=== PATIENT | female | born 1960 | race Two or more races ===

== ENCOUNTER 2016-06-13 08:27 | Inpatient (IN) | payer BC, OTHER ==
[2016-06-13] MEDS ORDERED: ALBUTEROL NEB 2.5 MG/3 ML INH STA ×2 (08:37→08:58)
[2016-06-13] MEDS ORDERED: guaiFENesin/CODEINE 5 ML UDC PO STA (08:37)
[2016-06-13] MEDS ORDERED: DEXAMETHASONE 10 MG/ML VIAL PO STA (08:37)
[2016-06-13] MEDS ORDERED: guaiFENesin/CODEINE 5 ML UDC ONE (08:42)
[2016-06-13] MEDS ORDERED: DEXAMETHASONE 10 MG/ML VIAL ONE (08:42)
[2016-06-13] MEDS ORDERED: ALBUTEROL NEB 2.5 MG/3 ML INH ONE ×2 (08:43→09:12)
[2016-06-13] MEDS ORDERED: SODIUM CHLORIDE 0.9% 1,000 ML IV ONE ×2 (08:47→11:46)
[2016-06-13] MEDS ORDERED: cefTRIAXone 1 GM in SODIUM CHLORIDE 0.9% MINIBAG 100 ML IV STA (09:45)
[2016-06-13] MEDS ORDERED: OSELTAMIVIR 75 MG CAPSULE PO STA (09:45)
[2016-06-13] MEDS ORDERED: AZITHROMYCIN INJ 500 MG in SODIUM CHLORIDE 0.9% 250 ML IV STA (09:45)
[2016-06-13] MEDS ORDERED: OSELTAMIVIR 75 MG CAPSULE PO ONE (09:54)
[2016-06-13] MEDS ORDERED: cefTRIAXone 1 GM VIAL ONE (09:54)
[2016-06-13] MEDS ORDERED: LEVALBUTEROL 1.25 MG INH STA (10:03)
[2016-06-13] MEDS ORDERED: oxyCODONE 5 MG TABLET PO STA (10:04)
[2016-06-13] MEDS ORDERED: oxyCODONE 5 MG TABLET ONE (10:09)
[2016-06-13] MEDS ORDERED: LEVALBUTEROL 1.25 MG INH ONE (10:37)
[2016-06-13] MEDS ORDERED: SODIUM CHLORIDE INHALATION 3 ML NEB ONE (10:38)
[2016-06-13] MEDS ORDERED: PROMETHAZINE INJ 12.5 MG in SODIUM CHLORIDE 0.9% 50 ML IV STA (11:31)
[2016-06-13] MEDS ORDERED: PROMETHAZINE 25 MG/1 ML VIAL ONE (11:33)
[2016-06-13] MEDS ORDERED: FUROSEMIDE 40 MG/4 ML VIAL IVP STA (12:36)
[2016-06-13] MEDS ORDERED: NITROGLYCERIN 2% PASTE TOP STA (12:36)
[2016-06-13] MEDS ORDERED: SODIUM CHLORIDE FLUSH 0.9% 10 ML SYRINGE IVP PRN ×2 (18:15→19:55)
[2016-06-13] MEDS ORDERED: ONDANSETRON 4 MG/2 ML VIAL IVP PRN ×2 (18:15→19:54)
[2016-06-13] MEDS ORDERED: ZOLPIDEM 5 MG TABLET PO PRN ×2 (18:15→20:00)
[2016-06-13] MEDS ORDERED: IPRATROPIUM/ALBUTEROL 3 ML NEB INH PRN ×2 (18:15→19:57)
[2016-06-13] MEDS ORDERED: PROCHLORPERAZINE 10 MG/2 ML VIAL IVP PRN ×2 (18:15→19:55)
[2016-06-13] MEDS ORDERED: MORPHINE 2 MG/ML SYRINGE IVP PRN ×2 (18:15→19:53)
[2016-06-13] MEDS ORDERED: oxyCODONE 5 MG TABLET PO PRN ×3 (18:15→19:54)
[2016-06-13] MEDS ORDERED: ACETAMINOPHEN 325 MG TABLET PO PRN (18:15)
[2016-06-13] MEDS ORDERED: SODIUM CHLORIDE FLUSH 0.9% 10 ML SYRINGE IVP SCH (18:15)
[2016-06-13] MEDS ORDERED: IPRATROPIUM/ALBUTEROL 3 ML NEB INH SCH (18:15)
[2016-06-13] MEDS ORDERED: SODIUM CHLORIDE 0.9% 1,000 ML IV SCH (18:15)
[2016-06-13] MEDS ORDERED: methylPREDNISolone SUCCINATE 125 MG/2 ML VIAL IVP SCH (18:15)
[2016-06-13] MEDS ORDERED: SACCHAROMYCES BOULARDII 250 MG CAPSULE PO SCH (18:15)
[2016-06-13] MEDS ORDERED: BUDESONIDE 0.5 MG/2 ML NEB INH SCH (19:00)
[2016-06-13] MEDS: SODIUM CHLORIDE 0.9% 1,000 ML IV SCH (20:04)
[2016-06-13] MEDS: OSELTAMIVIR 75 MG CAPSULE PO SCH (20:14)
[2016-06-13] MEDS ORDERED: OSELTAMIVIR 75 MG CAPSULE PO SCH (21:00)
[2016-06-13] MEDS: SODIUM CHLORIDE FLUSH 0.9% 10 ML SYRINGE IVP SCH (22:53)
[2016-06-13] MEDS: methylPREDNISolone SUCCINATE 125 MG/2 ML VIAL IVP SCH (22:54)
[2016-06-14] MEDS: oxyCODONE 5 MG TABLET PO PRN ×2 (01:00→22:04)
[2016-06-14] MEDS: IPRATROPIUM/ALBUTEROL 3 ML NEB INH SCH ×4 (01:58→16:55)
[2016-06-14] MEDS: methylPREDNISolone SUCCINATE 125 MG/2 ML VIAL IVP SCH ×3 (05:37→22:04)
[2016-06-14] MEDS: SODIUM CHLORIDE 0.9% 1,000 ML IV SCH (05:43)
[2016-06-14] MEDS: SODIUM CHLORIDE FLUSH 0.9% 10 ML SYRINGE IVP SCH ×3 (05:43→22:05)
[2016-06-14] MEDS: ACETAMINOPHEN 325 MG TABLET PO PRN (05:50)
[2016-06-14] MEDS ORDERED: PANTOPRAZOLE 40 MG TABLET PO SCH (07:00)
[2016-06-14] MEDS: PANTOPRAZOLE 40 MG TABLET PO SCH (07:01)
[2016-06-14] MEDS: BUDESONIDE 0.5 MG/2 ML NEB INH SCH ×2 (08:40→16:55)
[2016-06-14] MEDS ORDERED: ENOXAPARIN 40 MG/0.4 ML SYRINGE SUBQ SCH (09:00)
[2016-06-14] MEDS ORDERED: AZITHROMYCIN INJ 500 MG in SODIUM CHLORIDE 0.9% 250 ML IV SCH (09:00)
[2016-06-14] MEDS ORDERED: POLYETHYLENE GLYCOL 3350 17 GM PACKET PO SCH (09:00)
[2016-06-14] MEDS ORDERED: cefTRIAXone 2 GM in SODIUM CHLORIDE 0.9% MINIBAG 100 ML IV SCH (09:00)
[2016-06-14] MEDS: cefTRIAXone 2 GM in SODIUM CHLORIDE 0.9% MINIBAG 100 ML IV SCH (09:42)
[2016-06-14] MEDS: ENOXAPARIN 40 MG/0.4 ML SYRINGE SUBQ SCH (09:42)
[2016-06-14] MEDS: AZITHROMYCIN INJ 500 MG in SODIUM CHLORIDE 0.9% 250 ML IV SCH (09:44)
[2016-06-14] MEDS: OSELTAMIVIR 75 MG CAPSULE PO SCH ×2 (09:44→22:04)
[2016-06-14] MEDS: SACCHAROMYCES BOULARDII 250 MG CAPSULE PO SCH ×2 (09:44→17:45)
[2016-06-14] MEDS: POLYETHYLENE GLYCOL 3350 17 GM PACKET PO SCH (09:44)
[2016-06-14] MEDS ORDERED: LORazepam 2 MG/ML SYRINGE IVP PRN (21:44)
[2016-06-15] MEDS: ACETAMINOPHEN 325 MG TABLET PO PRN (01:53)
[2016-06-15] MEDS: methylPREDNISolone SUCCINATE 125 MG/2 ML VIAL IVP SCH (06:41)
[2016-06-15] MEDS: SODIUM CHLORIDE FLUSH 0.9% 10 ML SYRINGE IVP SCH (06:43)
[2016-06-15] MEDS: PANTOPRAZOLE 40 MG TABLET PO SCH (06:43)
[2016-06-15] MEDS: SACCHAROMYCES BOULARDII 250 MG CAPSULE PO SCH (08:55)
[2016-06-15] MEDS: oxyCODONE 5 MG TABLET PO PRN (08:55)
[2016-06-15] MEDS: cefTRIAXone 2 GM in SODIUM CHLORIDE 0.9% MINIBAG 100 ML IV SCH (08:56)
[2016-06-15] MEDS: OSELTAMIVIR 75 MG CAPSULE PO SCH (09:28)
[2016-06-15] MEDS: AZITHROMYCIN INJ 500 MG in SODIUM CHLORIDE 0.9% 250 ML IV SCH (09:28)
[2016-06-15] MEDS: ENOXAPARIN 40 MG/0.4 ML SYRINGE SUBQ SCH (09:28)
[2016-06-15] MEDS: POLYETHYLENE GLYCOL 3350 17 GM PACKET PO SCH (09:29)
[2016-06-15] MEDS: IPRATROPIUM/ALBUTEROL 3 ML NEB INH SCH (09:46)
[2016-06-15] MEDS: BUDESONIDE 0.5 MG/2 ML NEB INH SCH (09:46)
== END 2016-06-15 13:45 | disposition home or self-care (01) | DRG 194 ==
DX: J10.00 Influenza due to other identified influenza virus with unspecified type of pneumonia (principal); J45.901 Unspecified asthma with (acute) exacerbation; E87.1 Hypo-osmolality and hyponatremia; R09.02 Hypoxemia; Z21 Asymptomatic human immunodeficiency virus [HIV] infection status

== ENCOUNTER 2019-06-19 13:57 | Outpatient (CLI) | payer OTHER ==
--- NOTE | 2019-06-21 17:03 | Mammography Report ---
Reason: ROUTINE MAMMO Procedure Date: 06/19/2019 Accession Number: [id number] / [id number] Procedure: MGN - Screening Mammo Dig Bilat CPT Code: Final Report FULL RESULT: EXAM: Screening Mammo Dig Bilat DATE: 06/19/2019 2:30 PM CLINICAL HISTORY: The patient is an asymptomatic 59-year-old female. No personal nor family history breast cancer. TECHNIQUE: (B) - Bilateral CC and MLO views were obtained. COMPARISON: 07/03/2016 ([facility]) PARENCHYMAL PATTERN: (A) - The breasts demonstrate scattered fibroglandular densities bilaterally. FINDINGS: The pattern of asymmetry is stable given positional variation. An intramammary lymph node is again identified in the left breast. Few scattered benign calcifications. There are no suspicious masses, calcifications, or areas of distortion. IMPRESSION: Benign findings. BI-RADS category 2. RECOMMENDATION: (ANNUAL) - Recommend routine annual screening mammography. BI-RADS CATEGORY: (2) - Benign Findings. STANDARD QUALIFYING STATEMENTS: A negative or benign imaging report should not preclude biopsy if clinically suspicious findings are present. Dense breasts may obscure an underlying neoplasm.
== END 2019-06-19 13:58 | disposition home or self-care (01) ==
LOC: DI.N 13:57
DX: Z12.31 Encounter for screening mammogram for malignant neoplasm of breast (principal)
CPT/HCPCS: 77067